=== PATIENT | male | born 1935 | race Caucasian/White ===

== ENCOUNTER → 2017-01-12 13:07 | Outpatient (CLI) | payer MEDICARE, BC | END | disposition home or self-care (01) | LOC: D.MRI 13:07 | DX: M54.5 Low back pain (principal) ==

== ENCOUNTER 2017-05-22 18:21 | Emergency (ER) | payer MEDICARE, BC | END 2017-05-22 21:35 | disposition home or self-care (01) | LOC: D.ER 18:21 | DX: T40.4X5A Adverse effect of other synthetic narcotics, initial encounter (principal); Y92.009 Unspecified place in unspecified non-institutional (private) residence as the place of occurrence of the external cause; I10 Essential (primary) hypertension ==

== ENCOUNTER 2018-04-21 20:41 | Emergency (ER) | payer MEDICARE, BC ==
[~2018-04-21] VITALS: Ht 177.8 cm; Wt 85.0 kg
[2018-04-21 21:07] VITALS: Ht 177.8 cm; Wt 85.0 kg
[2018-04-22 01:20] VITALS: BP 156/72
== END 2018-04-22 01:20 | disposition home or self-care (01) ==
LOC: D.ER 20:41
DX: S01.91XA Laceration without foreign body of unspecified part of head, initial encounter (principal); W10.9XXA Fall (on) (from) unspecified stairs and steps, initial encounter; Y93.89 Activity, other specified; Y92.019 Unspecified place in single-family (private) house as the place of occurrence of the external cause; S00.93XA Contusion of unspecified part of head, initial encounter

== ENCOUNTER 2018-08-19 10:17 | Observation (INO) | payer MEDICARE, BC ==
[~2018-08-19] VITALS: Ht 177.8 cm; Wt 89.4 kg
[2018-08-19] VITALS (8 sets, daily range): BP systolic 113–176; BP diastolic 35–79; BMI 28.3
--- NOTE | ~2018-08-19 | MORECARE ---
CASE MANAGEMENT DISCHARGE SUMMARY PATIENT: LAVINIA FRANCISCO UNIT: [id number] ADM DATE: 08/19/18 AGE: 83 : 33 SEX: M ROOM/BED: D.E14 AUTHOR: JEFF GARCIA PHYSICIAN: REFERRING PHYSICIAN: KEILA ARRINGTON MD DATE OF SERVICE: 08/19/18 Discharge Plan Patient Name: LAVINIA FRANCISCO [facility] [facility] 1935 Planned Disposition: Anticipated Discharge Date: Discharge Date: Expected LOS: Initial Reviewer: [email or web address] Initial Review Date: 08/19/2018 Generated: 08/19/18 2:18 pm DCPIA - Discharge Planning Initial Assessment Updated by [email or web address]: Marya Anaya on 08/19/18 1:18 pm * Is the patient Alert and Oriented? Yes * PCP * Pharmacy [facility] * Preadmission Environment Home with Family * ADLs Partial Dependent * Partial ADLs (Assistance needed) Ambulation * Equipment Cane * List name and contact numbers for known caregivers / representatives who currently or will assist patient after discharge: BLAINE FRANCISCO, , * Community resources currently utilized None * Can the patient safely return to the preadmission environment? Yes * Has this patient been hospitalized within the prior 30 days at any hospital? No Patient Name: LAVINIA FRANCISCO Page 35574 at 1319 All edits/amendments must be made on the electronic document DICTATION DATE: 08/19/18 1318 MANAGER GYN: NELSY 08/19/18 1318 RPT#: [id number] DC DATE: STATUS: ADM IN [facility] [address] [place] [address] END OF REPORT
--- NOTE | ~2018-08-19 | MORECARE ---
CASE MANAGEMENT DISCHARGE SUMMARY PATIENT: LAVINIA FRANCISCO UNIT: [id number] ADM DATE: 08/19/18 AGE: 83 : 33 SEX: M ROOM/BED: D.2117 AUTHOR: JEFF GARCIA PHYSICIAN: REFERRING PHYSICIAN: KEILA ARRINGTON MD DATE OF SERVICE: 08/23/18 Discharge Plan Patient Name: LAVINIA FRANCISCO Facility: [facility]:[place] : 1935 Planned Disposition: Home Anticipated Discharge Date: 08/20/18 Discharge Date: 08/20/2018 Expected LOS: 1 Initial Reviewer: [email or web address] Initial Review Date: 08/19/2018 Generated: 08/23/18 12:26 pm DCP- Discharge Planning Updated by [email or web address]: Marya Anaya on 08/19/18 12:[address] Patient Name: LAVINIA FRANCISCO Admission Status: ER Accout number: [id number] Admission Date: 08-19-2018 : 1935 Admission Diagnosis: Attending: KEILA ARRINGTON Current LOS: 1 Anticipated DC Date: Planned Disposition: Primary Insurance: MEDICARE A & B Discharge Planning Comments: CM SPOKE WITH PATIENT AND FAMILY ABOUT DC PLANNING/NEEDS. [facility] PLANS TO DC TO HOME WHEN DISCHARGED. [facility] HAS NO NEEDS. [facility] USES A CANE TO HELP WITH AMBULATION. CM WILL FOLLOW AND ASSIST NEEDED WITH DC PLANNING/NEEDS. Bundle Helper: Marya Anaya DCPIA - Discharge Planning Initial Assessment Updated by [id number]: Marya Anaya on 08/19/18 1:18 pm * Is the patient Alert and Oriented? Yes * PCP * Pharmacy [facility] * Preadmission Environment Home with Family * ADLs Partial Dependent * Partial ADLs (Assistance needed) Ambulation * Equipment Cane * List name and contact numbers for known caregivers / representatives who currently or will assist patient after discharge: BLAINE FRANCISCO, , * Community resources currently utilized None * Can the patient safely return to the preadmission environment? Yes * Has this patient been hospitalized within the prior 30 days at any hospital? No Last DP export: 08/19/18 12:26 Patient Name: LAVINIA FRANCISCO Page 90791 at 1126 All edits/amendments must be made on the electronic document DICTATION DATE: 08/23/181125 MANAGER NEWS: NELSY 08/23/181125 RPT#: [id number] DC DATE:08/20/18 STATUS: DIS IN [facility] [address] [place] [address] END OF REPORT
--- NOTE | ~2018-08-19 | HP ---
PATIENT: LAVINIA FRANCISCO MEDICAL RECORD: [id number] ACCOUNT: [id number] LOCATION:[address] : [birth year] ADMISSION DATE: 08/19/18 PCP: KEILA ARRINGTON MD HISTORY AND PHYSICAL EXAMINATION REASON FOR ADMISSION: Recurrent chest pain. HISTORY OF PRESENT ILLNESS: The patient is an 83-year-old male with history of essential hypertension, remote inferior lateral myocardial infarction in 07/24/2005 at which point he had a PTCA of the OM branch. He had an ostial RCA intervention with an Xience stent in 03/07/2009. He has seen me for a Medicare wellness exam approximately 3 weeks ago and on questioning he did admit to some rest nocturnal substernal chest pain that reminded him of the angina. Usually, 1-2 nitro would resolve it. He was referred to Dr. Esparza who had seen him a month before, but was not having symptoms then. Dr. Esparza's [employer] saw him a few weeks ago and scheduled him for cardiac catheterization in 2 weeks. The patient had a severe episode last night, which he was at most of the night with substernal chest pain radiating to his right chest. He said he had no diaphoresis, nausea or vomiting. He took 5 nitroglycerin without relief and came into the Emergency Room. Ultimately morphine sulfate relieved his pain, he is now pain free. Denies any recent exertional chest pain. PAST MEDICAL HISTORY: Inferior lateral HI in 2004 with PTCA of the OM branch at that time in 2008, PTCA of the RCA. History of bradycardia, sick sinus syndrome, allergic rhinitis, BPH, dyslipidemia, rosacea, remote concussion falling down stairs, osteoarthritis. History of lumbar canal stenosis. PAST SURGICAL HISTORY: Tonsillectomy, cataract extraction of both eyes, placement of his coronary stents times 2, OM branch and the RCA. FAMILY HISTORY: Father at 85, had hydrocephalus, CAD. Mother at 84, hypertension. VACCINE HISTORY: He has had influenza vaccine, Prevnar and Pneumovax. HOME MEDICATIONS: Losartan 50 mg p.o. daily, Clopidogrel 75 mg a day, Nitrostat 0.4 sublingual p.r.n. chest pain, aspirin 81 mg a day, Aleve 220 mg p.o. b.i.d. p.r.n. low back pain, finasteride 5 mg a day, famotidine 20 mg at bedtime, Dyazide 1 every morning, simvastatin 20 mg at bedtime, allopurinol 300 mg a day. REVIEW OF SYSTEMS: GENERAL: Denies fatigue or fever. HEENT: No recent new visual change, sinus congestion, or sore throat. Does have chronic trouble with hearing. RESPIRATORY: No shortness of breath or cough. CARDIAC: Nocturnal chest pain for 3 months, critically crescendoed last evening, requiring 5 nitroglycerin without relief. GASTROINTESTINAL: No nausea, vomiting, change in stools or blood per rectum. GENITOURINARY: Nocturia once or twice nightly. ENDOCRINE: Denies polyuria, polydipsia, heat or cold intolerance. NEUROLOGIC: No history of stroke, TIA, or vascular headaches. INTEGUMENT: No rash or itching. PSYCHIATRIC: Denies depressed mood. PHYSICAL EXAMINATION: HISTORY AND PHYSICAL [id number] LAVINIA FRANCISCO GENERAL: The patient is alert at this time, in no acute distress, eating lunch in the ED. VITAL SIGNS: Temperature is 97.9, blood pressure was 160/68, pulse ox 100%, respirations 17, pulse 59 and regular. GENERAL: Alert and oriented. HEENT: Eyes are clear. Malar facial rashes noted. NECK: Supple, without bruits or masses. CHEST: Clear. HEART: Bradycardic without murmur. ABDOMEN: Soft and nontender. PELVIC: Deferred. EXTREMITIES: No CC&E. NEUROLOGICAL: He is oriented to person, place, and time. Memory is excellent. Gait was not tested. PSYCHIATRIC: He has normal mood. Denies depressive symptoms. LABORATORY DATA: Shows a white count of 6500, H&H of 12.9 and 38.3 respectively. BUN and creatinine are 42 and 1.7. Liver functions normal. Troponin 0.025. ProBNP is 381. Chest x-ray shows no acute cardiopulmonary disease process appreciated. EKG shows no acute ST segment abnormalities. ASSESSMENT: 1. Unstable rest angina. 2. Known coronary artery disease in the obtuse marginal branch and right coronary artery. 3. History of remote inferior myocardial infarction in 2004, hypertension, hyperlipidemia, rosacea, gouty arthritis, obesity, remote smoking history, lumbar disc disease. PLAN: The patient will be admitted, cardiac floor, topical nitrates. We will hydrate concerning his azotemia. Dr. Esparza will see the patient and consider cardiac catheterization next available. TRANSINT:[id number] Voice Confirmation ID: [id number] DOCUMENT ID: [id number] KEILA ARRINGTON MD at 0732 CC: [id number] DICTATION DATE: 08/19/18 1319 MARSHMALLOW MACHINE WORKER: 08/19/18 1518 ADM IN [place] [id number] [place] [id number]
--- NOTE | ~2018-08-19 | HEMODYNAMI ---
PATIENT:LAVINIA FRANCISCO MEDICAL RECORD: [id number] : 31 LOCATION:[facility] D.2117 ADMISSION DATE: 08/19/18 Generatedon:08/20/201813:31 Patient name: LAVINIA FRANCISCO Patient #: [id number] SSN: : 1935 Date of study: 08/20/2018 Page: Of Hemodynamic Procedure Report Patient Data Patient Demographics Procedure consent was obtained First Name: LAVINIA Gender: Male Last Name: MARYAM : 1935 Middle Initial: TERESA Age: 83 year(s) Patient #: [id number] Race: Unknown Additional ID: [id number] Contact details Address: [address] [place] [address] State: [place] City: [facility] Zip code: [address] Admission Admission Data Admission Date: 08/19/2018 Admission Time: 12:46 Room #: D.2117 Height (in.): 69.69 BSA: 2.06 (m2) Height (cm.): 177 BMI: 28.41 (kg/m2) Weight (lbs.): 196.21 Weight (kg.): 89 Lab Results Lab Result Date: 08/20/2018 Lab Result Time: 0:00 Biochemistry Name Units Result Min Max BUN mg/dl 42 --(----)-* 7 18 Creatinine mg/dl 1.7 --(----)-* 0.6 1.3 Procedure Procedure Types Cath Procedure Diagnostic Procedure C C w/Coronaries Procedure Description Procedure Date Procedure Date: 08/20/2018 Procedure Start Time: 12:38 Procedure Staff Name Function Shant Ngo MD Performing Physician Juan Ness RT Monitor Jaxson Feng RN Nurse Stevie Edgar RT Scrub Procedure Medications Medication Administration Route Dosage Oxygen etCO2 Nasal cannula 2 l/min Heparin Flush Bag added to field 2 bags (1000units/500ml NS) 0.9% NaCl I.V. 100 ml/hr Hemodynamics Rest BSA: 2.06 (m2) O2 Consumption: Estimated: 280.16 (ml/min) O2 Consumption indexed : Estimated:136 (ml/min/m) Pre Cath Intra NCS Post Cath Medications Time Medication Route Dose Verified Delivered Reason Notes Effe ctiveness by by 13:27:27 Oxygen etCO2 2 Shant Puri Per Nasal l/min Huber Feng RN physician cannula 13:27:35 Heparin Flush added 2 Shant Jaxson used for Bag to bags Huber Feng RN procedure (1000units/500ml field NS) 13:27:43 0.9% NaCl I.V. 100 Shant Jaxson Per ml/hr Huber Feng RN physician Procedure Log Time Note 12:39:59 Patient Height : 69.69 inches 12:40:03 Patient Weight : 196.21 lbs 12:42:59 Lab Result : Creatinine 1.7 mg/dl 12:42:59 Lab Result : BUN 42 mg/dl 13:00:21 Juan Ness RT(R) sent for patient. Start room use. 13:09:22 Time tracking: Regular hours (M-F 7:00 - 5:00) 13:09:26 Plan of Care:Hemodynamics will remain stable., Cardiac rhythm will remain stable., Comfort level will be maintained., Respiratory function will remain adequate., Patient/ family verbilizes understanding of procedure., Procedure tolerated without complication., Recovers from procedure without complications.. 13:21:31 Patient received from Med II to CCL 3 Alert and oriented. Tansferred to table in Supine position. 13:21:32 Warm blankets applied, and john hugger turned on for patient comfort. 13:21:33 Correct patient and procedure confirmed by team. 13:21:34 Signed procedure consent form obtained from patient. 13:21:35 ECG and BP/O2 sat monitors applied to patient. 13:27:27 Oxygen 2 l/min etCO2 Nasal cannula was administered by Jaxson Feng RN; Per physician; 13:27:35 Heparin Flush Bag (1000units/500ml NS) 2 bags added to field was administered by Jaxson Feng RN; used for procedure; 13:27:43 0.9% NaCl 100 ml/hr I.V. was administered by Jaxson Feng RN; Per physician; Signature Audit [place] Stage Time Signature Unsigned Intra-Procedure 08/20/2018 Stevie Edgar 1:31:43 PM RT(R) Signatures Monitor : Juan Ness RT Signature : Date : Time : [place] [id number] [place] [address]
--- NOTE | ~2018-08-19 | MORECARE ---
CASE MANAGEMENT DISCHARGE SUMMARY PATIENT: LAVINIA FRANCISCO UNIT: [id number] ADM DATE: 08/19/18 AGE: 83 : 33 SEX: M ROOM/BED: D.E14 AUTHOR: JEFF GARCIA PHYSICIAN: REFERRING PHYSICIAN: KEILA ARRINGTON MD DATE OF SERVICE: 08/19/18 Discharge Plan Patient Name: LAVINIA FRANCISCO Facility: [facility]:[place] : 1935 Planned Disposition: Anticipated Discharge Date: Discharge Date: Expected LOS: Initial Reviewer: [email or web address] Initial Review Date: 08/19/2018 Generated: 08/19/18 2:26 pm DCP- Discharge Planning Updated by [email or web address]: Marya Anaya on 08/19/18 12:[address] Patient Name: LAVINIA FRANCISCO Admission Status: ER Accout number: [id number] Admission Date: 08-19-2018 : 1935 Admission Diagnosis: Attending: KEILA ARRINGTON Current LOS: 1 Anticipated DC Date: Planned Disposition: Primary Insurance: MEDICARE A & B Discharge Planning Comments: CM SPOKE WITH PATIENT AND FAMILY ABOUT DC PLANNING/NEEDS. [facility] PLANS TO DC TO HOME WHEN DISCHARGED. [facility] HAS NO NEEDS. [facility] USES A CANE TO HELP WITH AMBULATION. CM WILL FOLLOW AND ASSIST NEEDED WITH DC PLANNING/NEEDS. Fiction And Nonfiction Author: Marya Anaya DCPIA - Discharge Planning Initial Assessment Updated by [email or web address]: Marya Anaya on 08/19/18 1:18 pm * Is the patient Alert and Oriented? Yes * PCP * [facility] * Preadmission Environment Home with Family * ADLs Partial Dependent * Partial ADLs (Assistance needed) Ambulation * Equipment Cane * List name and contact numbers for known caregivers / representatives who currently or will assist patient after discharge: BLAINE FRANCISCO, , * Community resources currently utilized None * Can the patient safely return to the preadmission environment? Yes * Has this patient been hospitalized within the prior 30 days at any hospital? No Last DP export: 08/19/18 12:18 Patient Name: LAVINIA FRANCISCO Page [id number] at 1326 All edits/amendments must be made on the electronic document DICTATION DATE: 08/19/18 1326 DRY HOUSE OPERATOR: NELSY 08/19/18 1326 RPT#: [id number] SC DATE: STATUS: ADM IN [facility] [address] [place] [address] END OF REPORT
--- NOTE | ~2018-08-19 | HEMODYNAMI ---
PATIENT:LAVINIA FRANCISCO MEDICAL RECORD: [id number] : 31 LOCATION:[facility] D.2117 ADMISSION DATE: 08/19/18 Generatedon:08/20/201814:20 Patient name: LAVINIA FRANCISCO Patient #: [id number] SSN: : [id number] Date of study: 08/20/2018 Page: Of Hemodynamic Procedure Report Patient Data Patient Demographics Procedure consent was obtained First Name: LAVINIA Gender: Male Last Name: MARYAM : 1935 [facility] Initial: TERESA Age: 83 year(s) Patient #: [id number] Race: Unknown Additional ID: [id number] Contact details Address: [address] [place] [address] State: [place] City: [facility] Zip code: [address] Past Medical History Allergies: No known allergies Admission Admission Data Admission Date: 08/19/2018 Admission Time: 12:46 Room #: D.2117 Height (in.): 69.69 BSA: 2.06 (m2) Height (cm.): 177 BMI: 28.41 (kg/m2) Weight (lbs.): 196.21 Weight (kg.): 89 Lab Results Lab Result Date: 08/20/2018 Lab Result Time: 0:00 Biochemistry Name Units Result Min Max BUN mg/dl 35 --(----)-* 7 18 Creatinine mg/dl 1.5 --(----)-* 0.6 1.3 CBC Name Units Result Min Max Hemoglobin g/dl 11.3 *-(----)-- 13.5 17.5 Procedure Procedure Types Cath Procedure Diagnostic Procedure [facility] w/Coronaries PCI Procedure Coronary Stent Coronary Stent Initial Procedure Description Procedure Date Procedure Date: 08/20/2018 Procedure Start Time: 13:57 Procedure End Time: 14:15 Procedure Staff Name Function Shant Ngo MD Performing Physician Juan Ness RT Monitor Jaxson Feng RN Nurse Stevie Edgar RT Scrub Romana London RN Certified Nursing Assistant Procedure Data Cath Procedure Fluoroscopy Diagnostic fluoroscopy Total fluoroscopy Time: 5 time: 5 min min Diagnostic fluoroscopy Total fluoroscopy dose: 263 dose: 263 mGy mGy Contrast Material Contrast Material Type Amount (ml) Isovue 300 102 Entry Location Entry Primary Successful Side Size Upsize Upsize Entry Closure Succes sful Closure Location (Fr) 1 (Fr) 2 (Fr) Remarks Device Remarks Femoral Right 5 Fr 7 Fr Exoseal artery Short Diagnostic catheters Device Type Used For End Catheter Placement MULTIPACK 3DRC 5Fr Right Coronary catheter Angiography MULTIPACK JL 4.0 5Fr Left Coronary catheter Angiography MULTIPACK Pigtail 5 Fr LV Angiography catheter Procedure Complications No complications Procedure Medications Medication Administration Route Dosage Oxygen etCO2 Nasal cannula 2 l/min Heparin Flush Bag added to field 2 bags (1000units/500ml NS) 0.9% NaCl I.V. 100 ml/hr Fentanyl I.V. 50 mcg Versed I.V. 1 mg Fentanyl I.V. 50 mcg Versed I.V. 1 mg Heparin Bolus I.V. 4000 units Hemodynamics Rest BSA: 2.06 (m2) HGB: 11.3 (g/dl) O2 Consumption: Estimated: 237.98 (ml/min) O2 Co nsumption indexed: Estimated:115.52 (ml/min/m) Heart Rate: 75 (bpm) Snapshots Pre Cath Intra NCS Post Cath Vital Signs Time Heart Resp SPO2 etCO2 NIBP (mmHg) Rhythm Pain Sedation Rate (ipm) (%) (mmHg) Status Level (bpm) 13:38:12 76 16 97 0 169/87(127) NSR 0 (11) 10(A) , No pain 13:42:40 71 16 96 10.4 153/83(133) NSR 0 (11) 10(A) , No pain 13:47:00 71 16 96 0 158/84(137) NSR 0 (11) 10(A) , No pain 13:51:20 68 17 95 9.6 159/81(133) NSR 0 (11) 10(A) , No pain 13:55:36 71 6 96 0 151/83(100) NSR 0 (11) 10(A) , No pain 14:00:03 73 10 95 9.7 144/76(118) NSR 0 (11) 10(A) , No pain 14:05:02 77 11 97 0 Measuring NSR 0 (11) 10(A) , No pain 14:05:24 74 11 96 0 156/85(130) NSR 0 (11) 10(A) , No pain 14:10:23 76 20 95 0 Measuring NSR 0 (11) 10(A) , No pain 14:10:54 81 14 95 0 171/87(136) NSR 0 (11) 10(A) , No pain 14:15:22 74 13 95 4.4 167/89(126) NSR 0 (11) 10(A) , No pain Medications Time Medication Route Dose Verified Delivered Reason Notes Effectiveness by by 13:41:46 Oxygen etCO2 2 Shant Jaxson Per physician Nasal l/min Huber Feng RN cannula 13:42:06 Heparin Flush added 2 Shant Jaxson used for Bag to bags Huber Feng RN procedure (1000units/500ml field NS) 13:42:21 0.9% NaCl I.V. 100 Shant Puri Per physician ml/hr Huber Feng RN 13:47:40 Fentanyl I.V. 50 Shant Jaxson for sedation mcg Huber Feng RN 13:48:22 Versed I.V. 1 mg Shant Puri for sedation Huebr Feng RN 13:51:43 Fentanyl I.V. 50 Shant Whaleyy for sedation mcg Huber Feng RN 13:51:48 Versed I.V. 1 mg Shant Whaleyy for sedation Huber Fegn RN 14:02:29 Heparin Bolus I.V. 4000 Shant Romana for verif ied units Huber Callahan anticoagulation with Dr. LAURA Ngo Procedure Log Time Note 12:45:22 Juan Ness RT(R) sent for patient. Start room use. 13:36:08 Patient Height : 69.69 inches 13:36:08 Patient Weight : 196.21 lbs 13:36:38 Time tracking: Regular hours (M-F 7:00 - 5:00) 13:36:41 Plan of Care:Hemodynamics will remain stable., Cardiac rhythm will remain stable., Comfort level will be maintained., Respiratory function will remain adequate., Patient/ family verbilizes understanding of procedure., Procedure tolerated without complication., Recovers from procedure without complications.. 13:36:49 Patient received from Med II to CCL 3 Alert and oriented. Tansferred to table in Supine position. 13:36:50 Warm blankets applied, and john hugger turned on for patient comfort. 13:36:51 Correct patient and procedure confirmed by team. 13:36:52 Signed procedure consent form obtained from patient. 13:36:53 ECG and BP/O2 sat monitors applied to patient. 13:36:53 Vital chart was started 13:38:18 Baseline sample Acquired. 13:38:22 Rhythm: sinus rhythm 13:38:24 Full Disclosure recording started 13:40:19 H&P Date Dictated: 08/19/2018 Within 30 days and on chart.. 13:40:21 Pre-procedure instructions explained to patient. 13:40:22 Pre-op teaching completed and patient verbalized understanding. 13:40:26 Family in patients room. 13:40:29 Patient NPO since Midnight. 13:41:25 Patient allergic to No known allergies 13:41:28 Is the patient allergic to Iodine/contrast media? No. 13:41:34 Is patient on blood thinner?Yes 13:41:37 ACC The patient was administered the following blood thiners within the last 24 hours: ACCPlavix 13:41:46 Oxygen 2 l/min etCO2 Nasal cannula was administered by Jaxson Feng RN; Per physician; 13:42:06 Heparin Flush Bag (1000units/500ml NS) 2 bags added to field was administered by Jaxson Feng RN; used for procedure; 13:42:21 0.9% NaCl 100 ml/hr I.V. was administered by Jaxson Feng RN; Per physician; 13:42:31 Patient diabetic? No. 13:42:32 ----Pre-sedation anethsthesia assessment.---- 13:42:34 Previous problem with sedation/anesthesia? No ? 13:42:36 Snore? Yes 13:42:37 Sleep apnea? No 13:42:40 Deviated septum? No 13:42:41 Opens mouth fully? Yes 13:42:42 Sticks out tongue? Yes 13:42:44 Airway obstruction? No ? 13:42:50 Dentures? Yes IN 13:42:53 Pre procedure: right dorsailis pedis pulse 1+ Palpable, but thready & weak; easily obliterated 13:43:11 Modified Tj's test Ulnar > 7 seconds. 13:43:14 Patient pain scale 0/10 ?. 13:43:21 IV patent on arrival in left antecubital with 0.9% NaCl at 10ml/hr. 13:45:16 Lab Result : BUN 35 mg/dl 13:45:16 Lab Result : Creatinine 1.5 mg/dl 13:45:16 Lab Result : Hemoglobin 11.3 g/dl 13:45:19 Lab results completed and on chart. 13:45:41 Right groin area was prepped with chlora-prep and draped in sterile fashion 13:45:42 Alarms reviewed by R. N. 13:45:42 Sharps counted by scrub and verified by R.N. 13:45:43 Physician arrived 13:45:44 --------ALL STOP TIME OUT------ 13:45:44 Final Timeout: patient, procedure, and site verified with staff and physician. All members of the team are in agreement. 13:45:48 Right groin site verified by team. 13:45:51 Physical assessment completed. ASA score P 2 - A patient with mild systemic disease as per Shant Ngo MD. 13:45:54 Sedation plan: IV Moderate Sedation Medication:Versed, Fentanyl 13:47:40 Fentanyl 50 mcg I.V. was administered by Jaxson Feng RN; for sedation; 13:47:54 Use device set Femoral Dx 13:47:56 ACIST Syringe (95480) opened to sterile field. 13:47:56 Bag Decanter (2002S) opened to sterile field. 13:47:57 Medline Cath Pack ([id number]) opened to sterile field. 13:47:57 DIAGNOSTIC WIRE .035 260cm J wire (467561) opened to sterile field. 13:47:59 ACIST Hand Control (91054) opened to sterile field. 13:47:59 ACIST Manifold (93272) opened to sterile field. 13:48:00 DIAGNOSTIC Multipack 5Fr catheter set (JR2653) opened to sterile field. 13:48:01 Tegaderm 4 x 4 (1626W) opened to sterile field. 13:48:02 SHEATH 5FR [place] (DWM315) opened to sterile field. 13:48:22 Versed 1 mg I.V. was administered by Jaxson Feng RN; for sedation; 13:51:43 Fentanyl 50 mcg I.V. was administered by Jaxson Feng RN; for sedation; 13:51:48 Versed 1 mg I.V. was administered by Jaxson Feng RN; for sedation; 13:57:05 Procedure started. 13:57:09 Local anesthetic to right femoral artery with Lidocaine 2% by Shant Ngo MD.INITIAL ACCESS ONLY 13:57:52 A 5 Fr sheath was inserted into the Right Femoral artery 13:57:55 Zero performed for pressure channel P1 13:58:23 A MULTIPACK 3DRC 5Fr catheter was advanced over the wire and used for Right Coronary Angiography. 13:58:39 RCA angiography performed. 13:59:12 Zero performed for pressure channel P1 13:59:29 Catheter exchanged over wire. 13:59:38 A MULTIPACK JL 4.0 5Fr catheter was advanced over the wire and used for Left Coronary Angiography. 14:00:03 LCA angiography performed. 14:00:43 Catheter exchanged over wire. 14:02:29 Heparin Bolus 4000 units I.V. was administered by Romana Callahan RN; for anticoagulation; verified with Dr. Ngo 14:02:40 A MULTIPACK Pigtail 5 Fr catheter was advanced over the wire and used for LV Angiography. 14:02:44 LV angiography performed. 14:02:45 LV gram done using CASTILLO 14:02:50 EF : 50 % 14:02:51 Catheter exchanged over wire. 14:02:57 Sheath upsized to a 7 Fr Short. 14:03:11 7 Fr EBU 3.5 SH guide catheter was inserted over the wire 14:03:14 CPTES wire advanced. 14:04:05 GUIDE 7FR EBU 3.5 SH catheter ([id number]) opened to sterile field. 14:04:06 SHEATH 7FR [place] (NFQ659) opened to sterile field. 14:04:06 CHOICE PT Extra Support 182cm wire ([id number]) opened to sterile field. 14:04:07 INFLATOR Merit BasixCompak (XL5095) opened to sterile field. 14:07:55 Inflate balloon Inflation number: 1 A EUPHORA 2.5 x 20 Balloon ([id number]) was prepped and advanced across the Mid LAD, then inflated to 17 MARCIE for 0:10 (min:sec). 14:08:19 Balloon removed over the wire. 14:09:51 Place stent Inflation Number: 2 A GAGE RX 3.0 x 22 stent ([id number]) was prepped and advanced across the Mid LAD. The stent was deployed at 13 MARCIE for 0:04 (min:sec). 14::54 Stent catheter was removed intact over wire. 14::54 Wire removed. 14::57 Guide catheter removed. 14:10:04 Sheath removed intact; hemostasis achieved with Exoseal to the Right Femoral artery. 14:10:06 Procedure ended.(Physican Out) 14:10:10 Contrast amount:Isovue 300 102ml. 14:10:39 Fluoroscopy time 05.00 minutes. 14::57 Fluoroscopy dose: 263 mGy 14::57 Flurop Dose total: 263 14:11:02 Sharps counted by scrub and verified by R.N. 14:11:04 Insertion/operative site no bleeding no hematoma. 14:11:07 Post-op/insertion site Right Femoral artery dressed using a 4 x 4 and Tegaderm. 14:12:42 Post right femoral artery:stable 14:12:43 Post Procedure Pulses reassessed and unchanged 14:12:46 Post procedure: right dorsailis pedis pulse 1+ Palpable, but thready & weak; easily obliterated. 14:12:49 Post procedure rhythm: sinus rhythm 14:12:51 Post procedure instruction explained to patient.Patient verbalizes understanding. 14:12:53 Procedure and supply charges have been captured, reviewed, submitted and are correct. 14:13:04 Procedure type changed to Cath procedure, Diagnostic procedure, LHC, LHC w/Coronaries, PCI procedure, Coronary Stent, Coronary Stent Initial 14:13:11 Procedure Complication : No complications 14:14:58 Vital chart was stopped 14:14:58 See physician's report for complete and final results. 14:15:03 Report given to PCU. 14:15:07 Patient transfered to PCU with Bed. 14:15:09 Procedure ended. 14:15:09 Full Disclosure recording stopped 14:15:13 End room use (Document Last) 14:19:12 EXOSEAL 7Fr (EX700) opened to sterile field. Intervention Summary Intervention Notes Time ActionType Lesion and Equipment Used Action# Pressure Duration Attributes 14:07:55 Inflate Mid LAD EUPHORA 2.5 x 1 17 00:10 balloon 20 Balloon ([id number]) 14:09:51 Place stent Mid LAD GAGE RX 3.0 x 2 13 00:04 22 stent ([id number]) Device Usage Item Name Manufacture Quantity Catalog Number Hospital Part Current M inimal Lot# / Charge Number Stock Stock Serial# Code ACIST Syringe Acist 1 30034 773327 395524 509907 2 0 (50877) Medical Systems Inc Bag Decanter Microtek 1 575272 09933 767975 5 () Medical Inc. Medline Cath Medline 1 [id number] 870326 40748 411042 5 Pack ([id number]) DIAGNOSTIC [facility] 1 753063 745978 289041 888735 3 0 WIRE .035 260cm J wire (335275) ACIST Hand Acist 1 95260 746189 391773 668118 5 Control Medical (61406) Systems Inc ACIST Manifold Acist 1 66206 127249 544732 461994 5 (03765) Medical Systems Inc DIAGNOSTIC Cardinal 1 RC5674 683927 13952 051256 3 0 Multipack 5Fr Health catheter set (AY1302) Tegaderm 4 x 4 3M 1 1626W 469089 450626 294444 5 (1626W) SHEATH 5FR Terumo 1 CRY393 039832 689980 175492 5 Ridgeway (HAV764) MULTIPACK 3DRC Cardinal 1 266567 5 5Fr catheter Health MULTIPACK JL Cardinal 1 576549 5 4.0 5Fr Health catheter MULTIPACK Cardinal 1 406629 5 Pigtail 5 Fr Health catheter GUIDE 7FR EBU Medtronic 1 [id number] 168561 064108 776459 0 3.5 SH catheter ([id number]) SHEATH 7FR Terumo 1 KWV082 533376 339036 499826 5 Ridgeway (SLD318) CHOICE PT [place] 1 [id number] 571752 251593 510227 5 Extra Support Scientific 182cm wire ([id number]) INFLATOR Merit Merit 1 JD0793 117094 517663 993950 1 5 Tapgage (RY2713) EUPHORA 2.5 x Medtronic 1 [id number] 523783 436222 892227 5 [id number] 20 Balloon ([id number]) GAGE RX 3.0 x Medtronic 1 [id number] 812019 5186960 815181 5 [id number] 22 stent ([id number]) EXOSEAL 7Fr Cardinal 1 EX700 662650 647672 895231 5 (EX700) Health Signature Audit [place] Stage Time Signature Unsigned Intra-Procedure 08/20/2018 Juan Ness RT(R) 2:20:29 PM Signatures Monitor : Juan Ness RT Signature : Date : Time : [address] [place] [address]
--- NOTE | ~2018-08-19 | OP ---
PATIENT NAME: LAVINIA FRANCISCO MEDICAL RECORD: [id number] :31 LOCATION:D.M2 D.2117 ADMISSION DATE:08/19/18 SURGEON: JANA SARMIENTO MD DATE OF OPERATION: 08/20/2018 PROCEDURES: 1. PTCA and stent, LAD. 2. Left heart catheterization. 3. Selective coronary angiography. 4. Left ventriculogram. INDICATIONS: Unstable angina and coronary artery disease. PROCEDURE IN DETAIL: After informed consent was obtained with detailed description of risks and benefits as well as alternative therapies, the patient elected to proceed with angiogram and angioplasty. The right femoral area was prepped and draped in normal sterile fashion. Right femoral artery was cannulated via modified Seldinger technique with placement of 7-Hungarian sheath. All catheters were exchanged through this sheath. FINDINGS: The left ventriculogram performed in standard 30-degree CASTILLO view reveals good cardiac wall motion throughout all segments. Overall ejection fraction is estimated at 50%. SELECTIVE CORONARY ANGIOGRAPHY: 1. Left main is with no significant angiographic disease. 2. Left anterior descending has 90% stenosis proximally. 3. Left circumflex has moderate irregularities, but no flow-limiting stenosis. 4. Right coronary has 90% to 95% stenosis in the mid vessel. PTCA AND STENT OF THE LAD: The stent used was 3.0 x 22-mm Bon. Result was 0% residual stenosis. OVERALL IMPRESSION: Successful PTCA and stent of the LAD, going from 90% initial stenosis to 0% residual. PLAN: PTCA and stent of the RCA in the near future. TRANSINT:[id number] Voice Confirmation ID: [id number] DOCUMENT ID: [id number] JANA SARMIENTO MD CC: [id number] DICTATION DATE: 08/20/186 DICER OPERATOR: 08/20/18 1623 ADM IN [facility] [address] [place] [address]
[2018-08-19 10:59] LABS: BASOPHILS 0.6 % (0-2); EOSINOPHILS 1.7 % (0-7); HEMATOCRIT 38.3 % (42.0-54.0); HEMOGLOBIN 12.9 g/dL (13.5-17.5); IMMATURE GRANULOCYTES 0.2 % (0-5); LYMPHOCYTES 11.2 % (15-50); MCH 32.8 pg (26.0-34.0); MCHC 33.7 g/dL (31.0-37.0); MCV 97.5 fL (80.0-100.0); MEAN PLATELET VOLUME 9.6 fL (7.4-10.4); MONOCYTES 11.5 % (2-11); NEUTROPHILS 74.8 % (40-80); PLATELET COUNT 177 10x3/uL (130-400); RBC 3.93 10x6/uL (4.20-6.10); RDW 12.4 % (11.5-14.5); WBC 6.5 10x3/uL (4.8-10.8)
[2018-08-19 11:04] LABS: ALBUMIN 3.8 g/dL (3.4-5.0); ANION GAP 13.1 mmol/L (8-16); BILIRUBIN - TOTAL 0.46 mg/dL (0.2-1.3); CALCIUM 8.8 mg/dL (8.5-10.1); CARBON DIOXIDE 27.2 mmol/L (21.0-32.0); CREATININE - SERUM 1.7 mg/dL (0.6-1.3); POTASSIUM - SERUM 4.3 mmol/L (3.5-5.1); PROTEIN - SERUM 7.7 g/dL (6.4-8.2)
[2018-08-19 11:10] LABS: TROPONIN-I 0.025 ng/mL (0.000-0.060)
[2018-08-20 04:00] VITALS: BP 111/75
[2018-08-20 05:38] LABS: BASOPHILS 0.3 % (0-2); EOSINOPHILS 4.2 % (0-7); HEMATOCRIT 34.4 % (42.0-54.0); HEMOGLOBIN 11.3 g/dL (13.5-17.5); IMMATURE GRANULOCYTES 0.2 % (0-5); LYMPHOCYTES 20.1 % (15-50); MCH 32.1 pg (26.0-34.0); MCHC 32.8 g/dL (31.0-37.0); MCV 97.7 fL (80.0-100.0); MEAN PLATELET VOLUME 9.8 fL (7.4-10.4); MONOCYTES 11.5 % (2-11); NEUTROPHILS 63.7 % (40-80); PLATELET COUNT 164 10x3/uL (130-400); RBC 3.52 10x6/uL (4.20-6.10); RDW 12.7 % (11.5-14.5)
[2018-08-20 06:17] LABS: ANION GAP 15.3 mmol/L (8-16); CALCIUM 8.4 mg/dL (8.5-10.1); CARBON DIOXIDE 23.9 mmol/L (21.0-32.0); CREATININE - SERUM 1.5 mg/dL (0.6-1.3); POTASSIUM - SERUM 4.2 mmol/L (3.5-5.1)
[2018-08-20 11:03] VITALS: BP 110/61
[2018-08-20 12:14] VITALS: Ht 177.8 cm; Wt 89.4 kg
[2018-08-20] MEDS ORDERED: PEPCID AC20 MG PO (16:06)
[2018-08-20] MEDS ORDERED: PLAVIX75 MG (16:06)
[2018-08-20] MEDS ORDERED: ZOCOR20 MG PO (16:06)
[2018-08-20] MEDS ORDERED: PROSCAR5 MG PO (16:06)
[2018-08-20] MEDS ORDERED: COZAAR50 MG PO (16:07)
[2018-08-20] MEDS ORDERED: BAYER CHEWABLE81 MG PO (16:09)
[2018-08-23] MEDS ORDERED: MAXZIDE 75/501 TAB PO (08:18)
[2018-08-23] MEDS ORDERED: FISH OIL 1,0001 CA1 PO (08:19)
[2018-08-23] MEDS ORDERED: XALATAN 0.0052.5 ML EACH EYE (08:22)
== END 2018-08-20 18:51 | disposition home or self-care (01) ==
LOC: D.ER 10:17 → D.EDHOLD 12:46 → OBSVTIME 12:46 → D.M2 15:46
PROVIDERS: Family Medicine
DX: I25.110 Atherosclerotic heart disease of native coronary artery with unstable angina pectoris (principal); N40.0 Benign prostatic hyperplasia without lower urinary tract symptoms; E78.5 Hyperlipidemia, unspecified; I10 Essential (primary) hypertension; E66.9 Obesity, unspecified; L71.9 Rosacea, unspecified; Z87.891 Personal history of nicotine dependence
CPT/HCPCS: 93458; C9600

== ENCOUNTER 2018-08-23 10:00 | Outpatient (CLI) | payer MEDICARE, BC ==
[~2018-08-23] VITALS: Ht 177.8 cm; Wt 87.3 kg
--- NOTE | ~2018-08-23 | HEMODYNAMI ---
PATIENT:LAVINIA FRANCISCO MEDICAL RECORD: [id number] : 31 LOCATION:D.CAT ADMISSION DATE: 08/23/18 Generatedon:08/23/201811:52 Patient name: LAVINIA FRANCISCO Patient #: [id number] SSN: : 1935 Date of study: 08/23/2018 Page: Of Hemodynamic Procedure Report Patient Data Patient Demographics Procedure consent was obtained First Name: LAVINIA Gender: Male Last Name: MARYAM : 1935 [facility] Initial: TERESA Age: 83 year(s) Patient #: [id number] Race: Unknown Additional ID: [id number] Contact details Address: [address] [place] [address] State: [place] City: [facility] Zip code: [address] Past Medical History Allergies: No known allergies Admission Admission Data Admission Date: 08/23/2018 Admission Time: 10:00 Lab Results Lab Result Date: 08/23/2018 Lab Result Time: 0:00 Biochemistry Name Units Result Min Max BUN mg/dl 28 --(----)-* 7 18 Creatinine mg/dl 1.5 --(----)-* 0.6 1.3 CBC Name Units Result Min Max Hemoglobin g/dl 12.5 *-(----)-- 13.5 17.5 Procedure Procedure Types Cath Procedure Diagnostic Procedure Sedation Charges Moderate Sedation up to 15 minutes Peripheral Cath Diagnostic Procedure Senior Java Engineer Peripheral Procedures Yjxqi-Jvlwvfj-Bbk-Off Procedure Description Procedure Date Procedure Date: 08/23/2018 Procedure Start Time: 11:27 Procedure End Time: 11:46 Procedure Staff Name Function Yina Nieto RT Monitor Janie Perez RT Scrub Marcin Duke RN Nurse Shant Ngo MD Performing Physician Procedure Data Cath Procedure Fluoroscopy Diagnostic fluoroscopy Total fluoroscopy Time: 5.7 time: 5.7 min min Diagnostic fluoroscopy Total fluoroscopy dose: 870 dose: 870 mGy mGy Contrast Material Contrast Material Type Amount (ml) Isovue 300 112 Entry Location Entry Primary Successful Side Size Upsize Upsize Entry Closure Succes sful Closure Location (Fr) 1 (Fr) 2 (Fr) Remarks Device Remarks Femoral Left 7 Fr 7 Fr Exoseal artery Short Long Estimated blood loss: 5 ml Diagnostic catheters Device Type Used For End Catheter Placement DIAGNOSTIC UF 5Fr Multi-vessel catheter ([id number]) Angiography Procedure Complications No complications Procedure Medications Medication Administration Route Dosage 0.9% NaCl I.V. 100 ml/hr Oxygen etCO2 Nasal cannula 2 l/min Lidocaine 2% added to field 20 Plavix P.O. 75 mg Versed I.V. 2 mg Fentanyl I.V. 100 mcg Heparin Bolus I.V. 4000 units Hemodynamics Rest HGB: 12.5 (g/dl) Heart Rate: 67 (bpm) Snapshots Pre Cath Intra NCS Post Cath Vital Signs Time Heart Resp SPO2 etCO2 NIBP (mmHg) Rhythm Pain Sedation Rate (ipm) (%) (mmHg) Status Level (bpm) 11:15:34 62 15 100 28.7 181/84(147) NSR 0 (11) 10(A) , No pain 11:20:02 63 10 99 15.9 171/74(123) NSR 0 (11) 10(A) , No pain 11:24:25 63 10 98 27.9 165/79(123) NSR 0 (11) 10(A) , No pain 11:28:45 68 19 97 7.5 185/87(142) NSR 0 (11) 10(A) , No pain 11:33:11 66 18 94 24.9 172/81(130) NSR 0 (11) 9(A) , No pain 11:37:33 68 18 96 13.6 177/88(119) NSR 0 (11) 9(A) , No pain 11:41:55 77 19 97 9.8 156/77(131) NSR 0 (11) 9(A) , No pain 11:46:09 75 11 97 0 177/93(143) NSR 0 (11) 9(A) , No pain Medications Time Medication Route Dose Verified Delivered Reason Notes Eff ectiveness by by 11:20:17 0.9% NaCl I.V. 100 Marcin Marcin Per physician ml/hr Leilani Duke RN RN 11:20:28 Oxygen etCO2 2 Marcin Marcin Per physician Nasal l/min Leilani Duke cannula RN RN 11:20:39 Lidocaine added 20ml Marcin Marcin for local 2% to vial Leilani Duke anesthetic field RN RN 11:20:57 Plavix P.O. 75 mg Marcin Marcin for Leilani Duke antiplatelet RN RN therapy 11:27:23 Versed I.V. 2 mg Marcin Marcin for sedation Leilani Duke RN RN 11:27:31 Fentanyl I.V. 100 Marcin Marcin for sedation mcg Leilani Duke RN RN 11:35:48 Heparin I.V. 4000 Marcin Marcin for Bolus units Leilani Duke anticoagulation RN sales clerk food Log Time Note 11:00:59 Diagnostic Cath Status : Elective 11:01:19 Marcin Duke RN sent for patient. Start room use. 11:01:20 Time tracking: Regular hours (M-F 7:00 - 5:00) 11:01:23 Plan of Care:Hemodynamics will remain stable., Cardiac rhythm will remain stable., Comfort level will be maintained., Respiratory function will remain adequate., Patient/ family verbilizes understanding of procedure., Procedure tolerated without complication., Recovers from procedure without complications.. 11:04:54 Patient received from Pre/Post Procedure Room to CCL 2 Alert and oriented. Tansferred to table in Supine position. 11:04:57 Warm blankets applied, and john hugger turned on for patient comfort. 11:04:57 Correct patient and procedure confirmed by team. 11:05:05 Signed procedure consent form obtained from patient. 11:13:12 ECG and BP/O2 sat monitors applied to patient. 11:13:12 Vital chart was started 11:13:14 Baseline sample Acquired. 11:13:17 Rhythm: sinus rhythm 11:13:19 Full Disclosure recording started 11:13:22 H&P Date Dictated: 08/23/2018 Within 30 days and on chart., H&P Addendum completed by physician on day of procedure. (MUST COMPLETE FOR ALL OUTPATIENTS). 11:13:23 Pre-procedure instructions explained to patient. 11:13:23 Pre-op teaching completed and patient verbalized understanding. 11:13:25 Family in patients room. 11:13:27 Patient NPO since Midnight. 11:13:28 Is the patient allergic to Iodine/contrast media? No. 11:13:29 Was the patient premedicated? No 11:13:30 Is patient on blood thinner?Yes 11:13:32 ACC The patient was administered the following blood thiners within the last 24 hours: ACCPlavix 11:13:35 Patient diabetic? No. 11:13:41 Previous problem with sedation/anesthesia? No ? 11:13:44 Snore? Yes 11:13:45 Sleep apnea? No 11:13:46 Deviated septum? No 11:13:47 Opens mouth fully? Yes 11:13:47 Sticks out tongue? Yes 11:13:49 Airway obstruction? No ? 11:13:55 Dentures? Yes in tight 11:13:59 Pre procedure: right dorsailis pedis pulse 1+ Palpable, but thready & weak; easily obliterated 11:14:03 Pre procedure: left dorsailis pedis pulse 1+ Palpable, but thready & weak; easily obliterated 11:14:06 Patient pain scale 0/10 ?. 11:14:15 IV patent on arrival in left forearm with 0.9% NaCl at [facility]. 11:14:18 Lab results completed and on chart. 11:14:22 Bilateral groins area was prepped with chlora-prep and draped in sterile fashion 11:14:22 Alarms reviewed by R. N. 11:14:23 Sharps counted by scrub and verified by R.N. 11:15:15 Use device set CATH PACK 11:15:16 ACIST Syringe (75052) opened to sterile field. 11:15:17 ACIST Hand Control (62144) opened to sterile field. 11:15:18 ACIST Manifold (02113) opened to sterile field. 11:15:18 Medline Cath Pack ([id number]) opened to sterile field. 11:15:19 Bag Decanter (2002) opened to sterile field. 11:15:19 DIAGNOSTIC WIRE .035 260cm J wire (513189) opened to sterile field. 11:15:36 CHOICE PT Extra Support 182cm wire ([id number]) opened to sterile field. 11:15:37 INFLATOR Merit BasixCompak (BJ6184) opened to sterile field. 11:15:38 SHEATH 7FR [place] (ZSL288) opened to sterile field. 11:18:19 Physician paged 11:20:01 Zero performed for pressure channel P1 11::17 0.9% NaCl 100 ml/hr I.V. was administered by Marcin Duke RN; Per physician; :: Oxygen 2 l/min etCO2 Nasal cannula was administered by Marcin Duke RN; Per physician; 11::39 Lidocaine 2% 20ml vial added to field was administered by Marcin Duke RN; for local anesthetic; 11::57 Plavix 75 mg P.O. was administered by Marcin Duke RN; for antiplatelet therapy; ::50 Lab Result : Creatinine 1.5 mg/dl 11:: Lab Result : BUN 28 mg/dl 11::50 Lab Result : Hemoglobin 12.5 g/dl 11::43 Physician arrived ::44 --------ALL STOP TIME OUT------ :44 Final Timeout: patient, procedure, and site verified with staff and physician. All members of the team are in agreement. 11::45 Bilateral groins site verified by team. 11::48 Physical assessment completed. ASA score P 2 - A patient with mild systemic disease as per Shant Ngo MD. 11::51 Sedation plan: IV Moderate Sedation Medication:Versed, Fentanyl 11::01 Procedure started. 11::07 Local anesthetic to left femerol artery with Lidocaine 2% by Shant Ngo MD.INITIAL ACCESS ONLY 11:27:23 Versed 2 mg I.V. was administered by Marcin Duke RN; for sedation; 11::24 A 7 Fr Short sheath was inserted into the Left Femoral artery 11::31 Fentanyl 100 mcg I.V. was administered by Marcin Duke RN; for sedation; 11:28:21 Zero performed for pressure channel P1 11::47 A DIAGNOSTIC UF 5Fr catheter ([id number]) was advanced over the wire and used for Multi-vessel Angiography. 11:30:49 Abdominal angiogram w/ runoff was performed. 11::54 Catheter removed. 11:31:04 7 Fr ar 2 sh guide catheter was inserted over the wire 11:33:09 Guide Catheter removed. unable to get back-up support 11:33:50 SHEATH 7FR ARROW 45cm ([id number]) opened to sterile field. 11:34:17 Sheath upsized to a 7 Fr Long. 11:35:26 GUIDE 7FR AR 2.0 SH catheter ([id number]) opened to sterile field. 11:35:39 7 Fr ar 2 sh guide catheter was inserted over the wire 11:35:48 Heparin Bolus 4000 units I.V. was administered by Marcin Duke RN; for anticoagulation; 11:36:16 Guide Catheter removed. unable to cannulate vessel. 11:37:00 GUIDE 7FR HS I SH catheter ([id number]) opened to sterile field. 11:37:10 7 Fr hs 1 sh guide catheter was inserted over the wire 11:37:55 choice pt wire advanced. 11:42:39 The EUPHORA 1.5 x 20 Balloon ([id number]) was advanced and then removed because of failure to cross lesion 11:42:42 Balloon removed over the wire. 11:42:44 Wire removed. 11:42:48 Guide catheter removed. 11:42:56 EXOSEAL 7Fr (EX700) opened to sterile field. 11:43:20 Sheath removed intact; hemostasis achieved with Exoseal to the Left Femoral artery. 11:43:22 Procedure ended.(Physican Out) 11:43:49 Fluoroscopy time 05.70 minutes. 11:43:53 Flurop Dose total: 870 11:43:53 Fluoroscopy dose: 870 mGy 11:43:57 Contrast amount:Isovue 300 112ml. 11:43:58 Sharps counted by scrub and verified by R.N. 11:43:59 Insertion/operative site no bleeding no hematoma. 11:44:02 Post-op/insertion site Left Femoral artery dressed using a 4 x 4 and Tegaderm. 11:44:06 Post left femerol artery:stable 11:44:07 Post Procedure Pulses reassessed and unchanged 11:44:09 Post procedure rhythm: unchanged. 11:44:12 Estimated blood loss: 5 ml 11:44:14 Post procedure instruction explained to patient.Patient verbalizes understanding. 11:44:14 Patient needs reinforcement of post procedure teaching. 11:46:06 Procedure type changed to Cath procedure, Diagnostic procedure, Sedation Charges, Moderate Sedation up to 15 minutes, Peripheral Cath Diagnostic Procedure, Senior Java Engineer Peripheral Procedures, Akytd-Xkxxzir-Xvj-Off 11:46:07 Procedure and supply charges have been captured, reviewed, submitted and are correct. 11:46:12 Procedure Complication : No complications 11:46:14 Vital chart was stopped 11:46:14 See physician's report for complete and final results. 11:46:24 Report given to Pre/Post Procedure Room. 11:46:26 Patient transfered to Pre/Post Procedure Room with Stretcher. 11:46:29 Procedure ended. 11:46:29 Full Disclosure recording stopped 11:46:34 End room use (Document Last) Intervention Summary Intervention Notes Time ActionType Lesion and Equipment Action# Pressure Duration Attributes Used 11:42:39 Discard EUPHORA Balloon 1.5 x 20 Balloon ([id number]) Device Usage Item Name Manufacture Quantity Catalog Number Hospital Part Current Minim al Lot# / Charge Number Stock Stock Serial# Code ACIST Acist 1 28764 514680 827301 809789 20 Syringe Medical (02637) Systems Inc ACIST Hand Acist 1 63671 340258 039593 902351 5 Control Medical (06990) Systems Inc ACIST Acist 1 18962 088206 876391 956250 5 Manifold Medical (81896) Systems Inc Medline Medline 1 [id number] 827459 99419 092120 5 Cath Pack ([id number]) Bag Microtek 1 2001S 419374 81689 393973 5 Decanter Medical Inc. () DIAGNOSTIC [place] 1 486589 059515 109500 366662 30 WIRE .035 260cm J wire (448656) CHOICE PT [place] 1 [id number] 078844 893481 808139 5 Extra Scientific Support 182cm wire ([id number]) INFLATOR Merit 1 NN5358 788338 193401 321148 15 [facility] Medical BasixCompak (WU0724) SHEATH 7FR Terumo 1 NYN261 854455 032052 679892 5 [place] (GOG874) DIAGNOSTIC Cardinal 1 [id number] 350190 514110 992375 10 UF 5Fr Health catheter ([id number]) SHEATH 7FR Teleflex 1 CL-25331 147640 376803 000075 1 ARROW 45cm (YA93504) GUIDE 7FR Medtronic 1 [id number] 170111 067810 725020 0 AR 2.0 SH catheter ([id number]) GUIDE 7FR Medtronic 1 [id number] 517449 378979 373286 0 HS I SH catheter ([id number]) EUPHORA 1.5 Medtronic 1 [id number] 556176 239636 420597 5 [id number] x 20 Balloon ([id number]) EXOSEAL 7Fr Cardinal 1 EX700 428270 120170 700864 5 (EX700) Health Signature Audit [place] Stage Time Signature Unsigned Intra-Procedure 08/23/2018 Yina Nieto 11:52:04 AM RT(R) Signatures Monitor : Yina Nieto RT Signature : Date : Time : [place] [address] [place] [address]
[2018-08-23 08:31] VITALS: BP 169/68; Ht 177.8 cm; Wt 87.3 kg
[2018-08-23 08:41] LABS: BASOPHILS 0.5 % (0-2); EOSINOPHILS 4.1 % (0-7); HEMATOCRIT 36.8 % (42.0-54.0); HEMOGLOBIN 12.5 g/dL (13.5-17.5); IMMATURE GRANULOCYTES 0.2 % (0-5); LYMPHOCYTES 18.4 % (15-50); MCH 32.8 pg (26.0-34.0); MCV 96.6 fL (80.0-100.0); MEAN PLATELET VOLUME 9.4 fL (7.4-10.4); MONOCYTES 13.4 % (2-11); NEUTROPHILS 63.4 % (40-80); PLATELET COUNT 168 10x3/uL (130-400); RBC 3.81 10x6/uL (4.20-6.10); RDW 12.3 % (11.5-14.5); WBC 5.6 10x3/uL (4.8-10.8)
[2018-08-23 08:53] LABS: ANION GAP 13.8 mmol/L (8-16); CALCIUM 9.1 mg/dL (8.5-10.1); CARBON DIOXIDE 25.2 mmol/L (21.0-32.0); CREATININE - SERUM 1.5 mg/dL (0.6-1.3)
[~2018-08-23 10:00] MED LIST: BAYER CHEWABLE81 MG PO; COZAAR50 MG PO; FISH OIL 1,0001 CA1 PO; MAXZIDE 75/501 TAB PO; PEPCID AC20 MG PO; PLAVIX75 MG; PROSCAR5 MG PO; XALATAN 0.0052.5 ML EACH EYE; ZOCOR20 MG PO
--- NOTE | 2018-08-23 12:11 | NUR ---
RECIEVED TO ROOM VIA STRETCHER FROM GLOBAL SUPPLY CHAIN DIRECTOR WITH FEMSTOP TO L/GROIN PRESSURE AT 209 HEMATOMA IS MARKED. PATIENT CONNECTED TO MONITOR FOR OBSERVATION WITH HR 66 BP 170/75 CHEST PAIN IS DENIED
--- NOTE | 2018-08-23 12:18 | NUR ---
FEMSTOP REMAINS IN PLACE WITH NO ADDITIONAL GROWTH TO HEMATOMA. PRESSURE REMAINS AT 209 VSS AND CHEST PAIN DENIED
--- NOTE | 2018-08-23 12:43 | NUR ---
RELEASED PRESSURE ON FEMSTOP TO 170 NO BLEEDING OR HEMATOMA NOTED. VSS AND CHEST PAIN DENIED
--- NOTE | 2018-08-23 13:00 | NUR ---
PATIENT COMPLAINS OF PAIN TO L/HIP WITH FEMSTOP IN PLACE. ORDERES OBTAINED FROM DR SARMIENTO FOR NORCO 5/325 PO TO BE GIVEN ORAL.
--- NOTE | 2018-08-23 13:27 | NUR ---
PATIENT VERBALZED RELIEF OF PAIN TO L/HIP. PRESSURE TO FEMSTOP RELEASED TO 145 NO BLEEDING NOTED
--- NOTE | 2018-08-23 13:48 | NUR ---
PRESSURE TO FEMSTOP RELEASED TO 100 NO BLEEDING NOTED
--- NOTE | 2018-08-23 14:32 | NUR ---
FEMSTOP REMAINS IN PLACE WITH NO PRESSURE TO SITE. NO BLEEDING OR HEMATOMA NOTED. PATIENT RESTING QUIETLY NO DISTRESS NOTED
--- NOTE | 2018-08-23 15:26 | NUR ---
FEMSTOP REMOVED WITH DRESSING APPLIED NO BLEEDING OR HEMATOMA NOTED. CHEST PAIN DENIED REPOSITIONED TO SITTING WITH HOB UP 30
--- NOTE | 2018-08-23 15:37 | NUR ---
VERBAL AND WRITTEN DISCHARGE GONE OVER WITH PATIENT AND FAMILY. 6 FR EXOSEAL L/GROIN REMAINS CDI NO GROWTH TO MARKED HEMATOMA SITE IS SOFT TO TOUCH.
--- NOTE | 2018-08-23 15:46 | NUR ---
PIV REMOVED WITH DRESSING APPLIED. DRESSING TO L/GROIN REMAINS CDI. PATIENT UP TO GET DRESSED FOR TRANSPORT HOME NO DISTRESS
--- NOTE | 2018-08-23 16:11 | NUR ---
PATIENT LEFT VIA WC TO [facility] FOR TRANSPORT HOME NO DISTESS NOTED. CHEST PAIN DENIED AND L/GROIN CDI
--- NOTE | 2018-08-24 13:24 | HP ---
PATIENT: LAVINIA JON MEDICAL RECORD: [id number] ACCOUNT: [id number] LOCATION:GIAN : 31 ADMISSION DATE: 08/23/18 PCP: KEILA ARRINGTON MD HISTORY AND PHYSICAL EXAMINATION DIAGNOSES: 1. Angina. 2. Coronary artery disease. 3. Recent PTCA stent LAD with concomitant disease RCA. 4. Peripheral vascular disease. 5. Claudication. 6. Hypertension. 7. Hyperlipidemia. HISTORY OF PRESENT ILLNESS: Mr. Jon presents with anginal symptomatology, found to have critical disease of the RCA and LAD, underwent successful PTCA stent of the LAD. The RCA is very heavily calcified and very tortuous. We will try for PTCA stent of the RCA as well as he is having leg pain compatible with claudication. He has a history of peripheral vascular disease. PHYSICAL EXAMINATION: GENERAL APPEARANCE: Well-nourished, well-developed, appears stated age. Level of distress, comfortable. PSYCHIATRIC: Mental status, alert, normal affect. Orientation, oriented to time, place and person. EYES: Lids and conjunctiva, noninjected. No discharge, no pallor. ENT: Lips, teeth, gums, normal dentition. Oropharynx, no cyanosis, no pallor. NECK: Carotid arteries, bilateral normal upstroke, no bruits, no thrills. JUGULAR VEINS: No jugular venous pressure or distention. CERVICAL LYMPH NODES: Nontender, nonenlarged. THYROID: Not enlarged. Nontender. No nodules. LUNGS: Respiratory effort, unlabored. CHEST: Normal curvature. No thoracic deformity. No chest wall tenderness. Percussion, resonant. Auscultation, clear. No wheezes, no rales, no rhonchi. CARDIOVASCULAR: Precordial exam, nondisplaced. No heaves or pericardial thrills. Rate and rhythm, regular. Heart sounds, normal S1, normal S2. No S3, no gallop, no rub. Systolic murmur, not heard. Diastolic murmur, not heard. EXTREMITIES: No cyanosis, no edema. Peripheral pulses, full and equal in all extremities, except as noted. No bruits appreciated. ABDOMEN: Soft, nondistended. Normal aorta. No bruit. Nontender. No masses. Liver, nontender, no hepatomegaly. Spleen, nontender, no splenomegaly. MUSCULOSKELETAL: No joint tenderness. No joint swelling. No erythema. NEUROLOGICAL: Normal gait, normal strength, normal tone. SKIN: Warm and dry. OVERALL IMPRESSION: Anginal symptomatology with significant disease of the RCA. We will try for transcatheter revascularization of the RCA if possible. If not, we would optimize medical therapy for the angina related to the RCA. TRANSINT:[id number] Voice Confirmation ID: [id number] DOCUMENT ID: [id number] HISTORY AND PHYSICAL [id number] LAVINIA JON, JANA RICHARDS at 1324 CC: [id number] DICTATION DATE: 08/23/18 1332 INFORMATION OFFICER: 08/23/18 1411 PRE [facility] [address] [place] [address]
--- NOTE | 2018-08-24 13:24 | OP ---
PATIENT NAME: LAVINIA FRANCISCO MEDICAL RECORD: [id number] :31 LOCATION:D.CAT ADMISSION DATE: SURGEON: JANA SARMIENTO MD DATE OF OPERATION: 08/23/2018 DATE OF SERVICE: 08/23/2018 PROCEDURES: 1. Aortofemoral runoff. 2. Abdominal aortography. 3. Selective coronary angiography. 4. Attempted, but failed PTCA stent RCA due to inability to cross the lesion with any balloon. PROCEDURE IN DETAIL: After informed consent was obtained and after detailed description of risks, benefits as well as alternative therapies, the patient elected to proceed with angiogram and angioplasty. The left femoral area was prepped and draped in normal sterile fashion. The left femoral artery was cannulated via modified Seldinger technique with placement of 7-Upper Sorbian sheath. All catheters exchanged through this sheath. FINDINGS: The abdominal aortography was performed. The catheter was pulled down for aortofemoral runoff and abdominal aortography reveals no significant abdominal aortic disease, no dissection or aneurysm formation. RIGHT LEG: A. Iliac: The common internal and external iliacs have mild irregularities, heavy calcification, but no flow-limiting stenosis. B. Femoral system: The common superficial and deep femoral have mild irregularities, heavy calcification, but no flow-limiting stenosis. C. Popliteal and infrapopliteal vessels are as well heavily calcified, diffusely diseased, but there is patent 3-vessel runoff to the foot. LEFT LEG: A. Iliac: The common internal and external iliacs have mild irregularities, heavy calcification, but no flow-limiting stenosis. B. Femoral system: The common superficial and deep femoral have mild irregularities, heavy calcification, but no flow-limiting stenosis. C. Popliteal and infrapopliteal vessels are as well heavily calcified, diffusely diseased, but there is patent 3-vessel runoff to the foot. Attempted but failed PTCA stent of the RCA. We were able to traverse multiple lesions with a Choice PT extra support wire; however, due to the heavy calcification, no balloon would even vaguely let alone into the lesions. OVERALL IMPRESSION: Significant disease of the right coronary artery, heavy calcification, tortuosity and multiple areas of over 90% stenosis. This will be treated medically at this point. TRANSINT:[id number] Voice Confirmation ID: [id number] DOCUMENT ID: [id number] OPERATIVE REPORT [id number] MARYAM,JANA THOMPSON MD at 1324 CC: [id number] DICTATION DATE: 08/23/18 1149 CASKET COVERER: 08/23/18 1222 PRE [facility] [address] [place] [address]
== END 2018-08-23 23:00 ==
LOC: D.CATH 10:00
PROVIDERS: Internal Medicine Interventional Cardiology
DX: I70.213 Atherosclerosis of native arteries of extremities with intermittent claudication, bilateral legs (principal); I25.10 Atherosclerotic heart disease of native coronary artery without angina pectoris; E78.5 Hyperlipidemia, unspecified

== ENCOUNTER → 2019-09-05 09:33 | Outpatient (CLI) | payer MEDICARE, BC ==
[2018-08-23 08:31] VITALS: BMI 27.6
--- NOTE | ~2019-09-05 | ST ---
PATIENT:LAVINIA FRANCISCO MEDICAL RECORD: [id number] SEX: M LOCATION:[facility] ORDER #: ADMISSION DATE: 09/05/19 AGE OF PATIENT: 84 REFERRING PHYSICIAN: INTERPRETING PHYSICIAN: JANA SARMIENTO MD DATE OF SERVICE: 09/05/2019 PROCEDURE: Nuclear stress test. INDICATION: Angina, coronary artery disease, hypertension, shortness of breath, hyperlipidemia. TECHNIQUE: He was exercised on standard Lexiscan protocol with 33 mCi of sestamibi injected at peak stress, 11 mCi used previously for rest images. FINDINGS: Gated SPECT reveals preserved ejection fraction at 71% with good wall motioning and thickening and brightening throughout all segments. SPECT imaging Cardiolite was used as myocardial perfusion agent. There is reversibility inferiorly, apically, and septally. This includes the basal, mid, apical, inferior segments, inferoseptal, mid septal as well as the apical segments themselves. OVERALL IMPRESSION: This is an abnormal nuclear stress test with intermediate risk with reversibility inferiorly, apically, and septally suggestive of hemodynamically significant coronary artery disease. TRANSINT:[id number] Voice Confirmation ID: [id number] DOCUMENT ID: [id number] JANA SARMIENTO MD CC: KEILA ARRINGTON [id number] DICTATION DATE: 09/05/19 1700 [facility] SPR[facility] INSTALLER: 09/06/19 0738 [facility] CLI 09/05/19 [facility] [address] [place] [address]
== END | disposition home or self-care (01) ==
LOC: D.HCCARDIO 09:33
PROVIDERS: ATTEND Internal Medicine Interventional Cardiology
DX: I25.10 Atherosclerotic heart disease of native coronary artery without angina pectoris (principal)

== ENCOUNTER 2019-09-16 07:14 | Outpatient (CLI) | payer MEDICARE, BC ==
[~2019-09-16] VITALS: Ht 177.8 cm; Wt 75.9 kg
--- NOTE | ~2019-09-16 | HEMODYNAMI ---
PATIENT:LAVINIA FRANCISCO MEDICAL RECORD: [id number] : 31 LOCATION:[facility] ADMISSION DATE: 09/16/19 Generatedon:09/16/20199:43 Patient name: LAVINIA FRANCISCO Patient #: [id number] : 1935 Date of study: 09/16/2019 Page: Of Hemodynamic Procedure Report Patient Data Patient Demographics Procedure consent was obtained First Name: LAVINIA Gender: Male Last Name: MARYAM : 1935 Middle Initial: TERESA Age: 84 year(s) Patient #: [id number] Race: SSN: [id number] Additional ID: [id number] Contact details Address: [address] [place] [address] State: [place] City: [facility] Zip code: [address] Past Medical History Allergies: No known allergies Admission Admission Data Admission Date: 09/16/2019 Admission Time: 7:14 Arrival Date: 09/16/2019 Arrival Time: 8:00 Admit Source: Other Insurance Payor: Medicare, Private health insurance [facility] #: [id number] Height (in.): 70.08 BSA: 1.94 (m2) Height (cm.): 178 BMI: 23.99 (kg/m2) Weight (lbs.): 167.55 Weight (kg.): 76 Procedure Procedure Types Cath Procedure Diagnostic Procedure LHC [facility] w/Coronaries FFR/IVUS FFR Initial FFR Additional Sedation Charges Moderate Sedation up to 30 minutes PCI Procedure Coronary Stent Coronary Stent Initial Hemochron ACT Test Procedure Description Procedure Date Procedure Date: 09/16/2019 Procedure Start Time: 9:08 Procedure End Time: 9:39 Procedure Staff Name Function Shant Ngo MD Performing Physician Yina Nieto RT Monitor Janie Perez RT Scrub Romana Callahan RN Nurse Indication Angina Procedure Data Cath Procedure Fluoroscopy Diagnostic fluoroscopy Total fluoroscopy Time: 8.4 time: 8.4 min min Diagnostic fluoroscopy Total fluoroscopy dose: dose: 1022 mGy 1022 mGy Contrast Material Contrast Material Type Amount (ml) Isovue 300 108 Entry Location Entry Primary Successful Side Size Upsize Upsize Entry Closure Succes sful Closure Location (Fr) 1 (Fr) 2 (Fr) Remarks Device Remarks Femoral Right 6 Fr 7 Fr Exoseal artery Short Long Estimated blood loss: 5 ml Diagnostic catheters Device Type Used For End Catheter Placement MULTIPACK Pigtail 5 Fr LV Angiography catheter MULTIPACK JL 4.0 5Fr Left Coronary catheter Angiography MULTIPACK 3DRC 5Fr Right Coronary catheter Angiography Procedure Complications No complications Procedure Medications Medication Administration Route Dosage 0.9% NaCl I.V. 100 ml/hr Oxygen etCO2 Nasal cannula 2 l/min Lidocaine 2% added to field 20 Heparin Flush Bag added to field 2 bags (1000units/500ml NS) Versed I.V. 2 mg Fentanyl I.V. 50 mcg Heparin Bolus I.V. 4000 units Hemodynamics Rest BSA: 1.94 (m2) O2 Consumption: Estimated: 211.3 (ml/min) O2 Consumption indexed: Estimated:108.92 (ml/min/m) Heart Rate: 58 (bpm) Pressure Samples Time Site Value (mmHg) Purpose Heart Use Rate(bpm) 9:08 LV 156/83,7 Snapshot 68 Snapshots Pre Cath Intra NCS Post Cath Vital Signs Time Heart Resp SPO2 etCO2 NIBP (mmHg) Rhythm Pain Sedation Rate (ipm) (%) (mmHg) Status Level (bpm) 8:58:59 75 19 98 15 135/64(119) NSR 0 (11) 10(A) , No pain 9:03:19 59 18 97 10.5 139/63(111) SB 0 (11) 10(A) , No pain 9:07:39 55 11 97 24 117/64(98) SB 0 (11) 10(A) , No pain 9:12:38 60 13 95 0 Measuring NSR 0 (11) 10(A) , No pain 9:12:40 60 13 95 27 129/64(111) NSR 0 (11) 9(A) , No pain 9:16:56 62 13 97 21 139/63(118) NSR 0 (11) 9(A) , No pain 9:21:17 58 13 96 26.2 126/63(111) SB 0 (11) 9(A) , No pain 9:25:33 59 14 96 28.5 146/63(100) SB 0 (11) 9(A) , No pain 9:29:52 62 14 97 27.7 163/74(96) NSR 0 (11) 10(A) , No pain 9:34:19 65 14 98 27.7 155/75(124) NSR 0 (11) 10(A) , No pain 9:38:43 62 22 99 17.2 149/71(117) NSR 0 (11) 10(A) , No pain Medications Time Medication Route Dose Verified Delivered Reason Notes Effectiveness by by 8:55:51 0.9% NaCl I.V. 100 Shant Romana used for ml/hr Huber Callahan full roll inspector 8:55:58 Oxygen etCO2 2 Shant Romana used for Nasal l/min Huber Callahan procedure cannula RN 8:56:03 Lidocaine 2% added 20ml Shant Shant for local to vial Huber Ngo MD anesthetic field 8:56:08 Heparin Flush added 2 Shant Shant used for Bag to bags Huber Ngo MD procedure (1000units/500ml field NS) 9:08:28 Versed I.V. 2 mg Shant Romana for sedation Huber Callahan RN 9:08:34 Fentanyl I.V. 50 Shant Romana for sedation mcg Huber Callahan RN 9:19:57 Heparin Bolus I.V. 4000 Shant Romana for verifi ed units Huber Callahan anticoagulation with Dr. LAURA Ngo Procedure Log Time Note 8:20:14 Diagnostic Cath Status : Elective 8:20:35 Indication : Angina 8:20:57 Informed consent obtained and on chart 8:22:46 Arrival Date: 09/16/2019 8:00:00 AM 8:23:11 Insurance Payor : Private health insurance, Medicare 8:24:42 Admit Source: Other 8:24:46 Patient Height : 70.08 inches 8:24:50 Patient Weight : 167.55 lbs 8:27:42 Janie LINDO(R) sent for patient. Start room use. 8:27:43 Time tracking: Regular hours (M-F 7:00 - 5:00) 8:27:47 Plan of Care:Hemodynamics will remain stable., Cardiac rhythm will remain stable., Comfort level will be maintained., Respiratory function will remain adequate., Patient/ family verbilizes understanding of procedure., Procedure tolerated without complication., Recovers from procedure without complications.. 8:55:51 0.9% NaCl 100 ml/hr I.V. was administered by Romana Callahan RN; used for procedure; Verbal order read back and verified. 8:55:58 Oxygen 2 l/min etCO2 Nasal cannula was administered by Romana Callahan RN; used for procedure; Verbal order read back and verified. 8:56:03 Lidocaine 2% 20ml vial added to field was administered by Shant Ngo MD; for local anesthetic; Verbal order read back and verified. 8:56:08 Heparin Flush Bag (1000units/500ml NS) 2 bags added to field was administered by Shant Ngo MD; used for procedure; Verbal order read back and verified. 8:57:45 Patient received from Pre/Post Procedure Room to [facility] 2 Alert and oriented. Tansferred to table in Supine position. 8:57:46 Warm blankets applied, and john hugger turned on for patient comfort. 8:57:46 Correct patient and procedure confirmed by team. 8:57:47 ECG and BP/O2 sat monitors applied to patient. 8:57:51 Vital chart was started 9:04:05 Baseline sample Acquired. 9:04:09 Rhythm: sinus rhythm 9:04:10 Full Disclosure recording started 9:04:17 H&P Date Dictated: 09/16/2019 Within 30 days and on chart., H&P Addendum completed by physician on day of procedure. (MUST COMPLETE FOR ALL OUTPATIENTS). 9:04:18 Pre-procedure instructions explained to patient. 9:04:19 Pre-op teaching completed and patient verbalized understanding. 9:04:24 Family unavailable. 9:04:25 Patient NPO since Midnight. 9:04:28 Is the patient allergic to Iodine/contrast media? No. 9:04:39 Was the patient premedicated? Yes 9:04:59 ACC The patient was administered the following blood thiners within the last 24 hours: ACCPlavix 9:05:02 Patient diabetic? No. 9:05:04 Previous problem with sedation/anesthesia? No ? 9:05:06 Snore? No 9:05:07 Sleep apnea? No 9:05:08 Deviated septum? No 9:05:08 Opens mouth fully? Yes 9:05:09 Sticks out tongue? Yes 9:05:11 Airway obstruction? No ? 9:05:18 Dentures? Yes in tight 9:05:21 Pre procedure: right dorsailis pedis pulse 1+ Palpable, but thready & weak; easily obliterated 9:05:23 Pre procedure: left dorsailis pedis pulse 1+ Palpable, but thready & weak; easily obliterated 9:05:25 Patient pain scale 0/10 ?. 9:05:33 IV patent on arrival in left forearm with 0.9% NaCl at O. 9:05:36 Lab results completed and on chart. 9:05:41 Stress Test: yes; abnormal ? 9:05:47 Risk of Mortality: 2.2 9:05:50 Risk of blood transfusion: 5.7 9:05:54 Risk of DANIA: 8.6 9:05:59 Right groin area was prepped with chlora-prep and draped in sterile fashion 9:06:00 Alarms reviewed by R. N. 9:06:01 Sharps counted by scrub and verified by R.N. 9:06:01 Physician arrived 9:06:02 --------ALL STOP TIME OUT------ 9:06:02 Final Timeout: patient, procedure, and site verified with staff and physician. All members of the team are in agreement. 9:06:04 Right groin site verified by team. 9:06:07 Fire Safety Assessment: A--An alcohol-based skin anteseptic being used preoperatively., C--Open oxygen or nitrous oxide is being used., D--An ESU, laser, or fiber-optic light is being used. 9:06:10 Physical assessment completed. ASA score P 2 - A patient with mild systemic disease as per Shant Ngo MD. 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 9:07:25 Maximum allowable contrast dose (3.7 X eGFR X 0.75)113 ml. 9:07:29 Sedation plan: IV Moderate Sedation Medication:Versed, Fentanyl 9:07:36 Use device set Femoral Dx 9:07:37 ACIST Syringe (04093) opened to sterile field. 9:07:38 Bag Decanter (2001S) opened to sterile field. 9:07:38 Medline Cath Pack ([id number]) opened to sterile field. 9:07:39 ACIST Hand Control (67158) opened to sterile field. 9:07:40 ACIST Manifold (42192) opened to sterile field. 9:07:40 DIAGNOSTIC Multipack 5Fr catheter set (KV2921) opened to sterile field. 9:07:41 Tegaderm 4 x 4 (1626W) opened to sterile field. 9:07:44 EMERALD Guide Wire (559-152) opened to sterile field. 9:07:53 SHEATH 6FR [place] (GGQ408) opened to sterile field. 9:07:57 Procedure started. 9:08:06 Local anesthetic to right femoral artery with Lidocaine 2% by Shant Ngo MD.INITIAL ACCESS ONLY 9:08:15 A 6 Fr Short sheath was inserted into the Right Femoral artery 9:08:26 Zero performed for pressure channel P1 9:08:28 Versed 2 mg I.V. was administered by Romana Callahan RN; for sedation; Verbal order read back and verified. 9:08:31 Zero performed for pressure channel P1 9:08:34 Fentanyl 50 mcg I.V. was administered by Romana Callahan RN; for sedation; Verbal order read back and verified. 9:08:40 Zero performed for pressure channel P1 9:08:46 Zero performed for pressure channel P1 9:09:18 A MULTIPACK Pigtail 5 Fr catheter was advanced over the wire and used for LV Angiography. 9:09:27 LV hemodynamics recorded. 9:09:29 LV gram done using CASTILLO 9:09:31 Injector settings: Ml/sec: 5, Volume: 15, 9:09:36 EF : 55 % 9:09:38 Catheter removed. 9:09:41 A MULTIPACK JL 4.0 5Fr catheter was advanced over the wire and used for Left Coronary Angiography. 9:10:29 LCA angiography performed. 9:10:32 Injector settings: Ml/sec: 3, Volume: 6, 9:11:06 Catheter removed. 9:11:14 A MULTIPACK 3DRC 5Fr catheter was advanced over the wire and used for Right Coronary Angiography. 9:11:19 RCA angiography performed. 9:11:21 Injector settings: Ml/sec: 3, Volume: 6, 9:11:22 Catheter removed. 9:11:35 INFLATOR Merit BasixCompak (HH1954) opened to sterile field. 9:11:40 Zero performed for pressure channel P1 9:12:23 Sullivan Verrata Plus pressure wire (64040P) opened to sterile field. 9:12:54 Zero performed for pressure channel P1 9:13:33 SHEATH 7FR [place] (MHN991) opened to sterile field. 9:13:58 GUIDE 7FR AR 2.0 SH catheter ([id number]) opened to sterile field. 9:13:59 GUIDE 6FR XB 4.0 catheter ([id number]) opened to sterile field. 9:14:24 CHOICE PT Extra Support 182cm wire ([id number]) opened to sterile field. 9:14:41 Proceeding to intervention. 9:14:50 7 Fr ar 2 sh guide catheter was inserted over the wire 9:16:46 Guide Catheter removed. unable to cannulate vessel. 9:16:55 GUIDE 7FR HS II SH catheter ([id number]) opened to sterile field. 9:17:06 SHEATH 7FR ARROW 45cm ([id number]) opened to sterile field. 9:18:46 Sheath upsized to a 7 Fr Long. 9:18:55 7 Fr hs 2 sh guide catheter was inserted over the wire 9:19:02 choicept wire advanced. 9:19:57 Heparin Bolus 4000 units I.V. was administered by Romana Callahan RN; for anticoagulation; verified with Dr. Ngo Verbal order read back and verified. 9:20:42 Wire removed. unable to cross lesion. 9:21:35 FIELDER XT 190cm guidewire ([id number]) opened to sterile field. 9:21:41 fielder] wire advanced. 9:22:43 Wire removed. unable to cross lesion. 9:23:07 aborting pci to RCA. 9:23:17 Guide catheter removed. 9:23:28 6 Fr xb 4 guide catheter was inserted over the wire 9:23:36 FFR/IFR wire advanced. 9:23:37 Baseline FFR 1. 9:24:35 ACC Pre-intervention SHANE Flow is 3. 9:25:14 Wire advanced across lesion. 9:27:13 mCirc lesion measured at 0.95 with IFR 9:27:50 Wire redirected to lad. 9:28:09 Baseline FFR 1. 9:28:17 mLAD lesion measured at 0.87 with IFR 9:29:29 Place stent Inflation Number: 1 A GAGE RX 3.5 x 15 stent ([id number]) was prepped and advanced across the Mid LAD 70. The stent was deployed at 19 MARCIE for 0:10 (min:sec) . 9:30:42 Stent catheter was removed intact over wire. 9:30:42 Wire removed. 9:30:42 Guide catheter removed. 9:30:53 EXOSEAL 7Fr (EX700) opened to sterile field. 9:31:05 Sheath removed intact; hemostasis achieved with Exoseal to the Right Femoral artery. 9:31:10 Procedure ended.(Physican Out) 9:32:36 ACT drawn and resulted at 104 seconds. (normal therapeutic range 180-240 seconds). 9:34:49 Fluoroscopy time 08.40 minutes. 9:34:53 Flurop Dose total: 1022 9:34:53 Fluoroscopy dose: 1022 mGy 9:34:59 Dose Area Product 67726 mGy/cm. 9:35:02 Contrast amount:Isovue 300 108ml. 9:35:07 Maximum allowable dose exceeded? No. 9:35:08 Sharps counted by scrub and verified by R.N. 9:35:10 Insertion/operative site no bleeding no hematoma. 9:35:14 Post-op/insertion site Right Femoral artery dressed using a 4 x 4 and Tegaderm. 9:35:16 Post Procedure Pulses reassessed and unchanged 9:35:19 Post procedure rhythm: unchanged. 9:35:21 Estimated blood loss: 5 ml 9:35:23 Post procedure instruction explained to patient.Patient verbalizes understanding. 9:35:23 Patient needs reinforcement of post procedure teaching. 9:36:31 Procedure type changed to Cath procedure, Diagnostic procedure, LHC, [facility] w/Coronaries, FFR/IVUS, FFR Initial, FFR Additional, Sedation Charges, Moderate Sedation up to 30 minutes, PCI procedure, Coronary Stent, Coronary Stent Initial, Hemochron ACT Test 9:38:45 Procedure and supply charges have been captured, reviewed, submitted and are correct. 9:38:49 Procedure Complication : No complications 9:38:52 Vital chart was stopped 9:38:54 [facility] Findings: MVD- PCI performed (see procedure note) 9:38:55 Operative report dictated upon procedure completion. 9:38:56 See physician's report for complete and final results. 9:38:59 Report given to Pre/Post Procedure Room. 9:39:01 Patient transfered to Pre/Post Procedure Room with Stretcher. 9:39:02 Procedure ended. 9:39:02 Full Disclosure recording stopped 9:39:13 ACC-PCI Only Patient was given prescriptions, or instructed by Shant Ngo MD to start/continue the following medications upon discharge: Plavix 9:39:14 End room use (Document Last) 9:41:00 End room use (Document Last) 9:42:27 End room use (Document Last) Intervention Summary Intervention Notes Time ActionType Lesion and Equipment Used Action# Pressure Duration Attributes 9:29:29 Place stent Mid LAD GAGE RX 3.5 x 1 19 00:10 15 stent ([id number]) Device Usage Item Name Manufacture Quantity Catalog Number Hospital Part Current Minimal Lot# / Charge Number Stock Stock Serial# Code ACIST Syringe Acist 1 60365 210451 762691 021345 20 (37868) Medical Systems Inc Bag Decanter Microtek 1 2001S 470673 99046 811621 5 (2001S) Medical Inc. Medline Cath Medline 1 [id number] 916267 96023 758182 5 Pack ([id number]) ACIST Hand Acist 1 66038 451898 849565 323670 5 Control Medical (24533) Systems Inc ACIST Manifold Acist 1 37394 164897 455054 216115 5 (86868) Medical Systems Inc DIAGNOSTIC Cardinal 1 UA8390 550907 28221 105055 30 Multipack 5Fr Health catheter set (UX8572) Tegaderm 4 x 4 3M 1 1626W 949906 936249 510428 5 (1626W) EMERALD Guide Cardinal 1 502-455 603075 907413 754764 5 Wire (502-455) Health SHEATH 6FR Terumo 1 BGY409 630676 902347 554017 40 [place] (OPU941) MULTIPACK Cardinal 1 119319 5 Pigtail 5 Fr Health catheter MULTIPACK JL Cardinal 1 117049 5 4.0 5Fr Health catheter MULTIPACK 3DRC Cardinal 1 048261 5 5Fr catheter Health INFLATOR Merit Merit 1 OC9102 596690 312934 754221 15 iCrossingutD[employer] Capital (ZW1559) Sullivan Sullivan 1 31517R 984519 586590146 543251 5 Verrata Plus pressure wire (33904Y) SHEATH 7FR Terumo 1 NFK462 088032 788438 329405 5 [place] (WVD290) GUIDE 7FR AR Medtronic 1 [id number] 012065 062300 676784 0 2.0 SH catheter ([id number]) GUIDE 6FR XB Cardinal 1 [id number] 783418 746640 438914 2 4.0 catheter Health (14579874) CHOICE PT [place] 1 [id number] 438997 264732 147190 5 Extra Support Scientific 182cm wire ([id number]) GUIDE 7FR HS Medtronic 1 [id number] 637054 392947 408538 0 II SH catheter ([id number]) SHEATH 7FR Teleflex 1 CL-74154 393872 520560 503784 1 ARROW 45cm (GJ11872) FIELDER XT Asahi Intecc 1 [id number] 513637 10978 641459 5 190cm guidewire ([id number]) GAGE RX 3.5 x Medtronic 1 [id number] 830208 4979544 239763 5 [id number] 15 stent ([id number]) EXOSEAL 7Fr Cardinal 1 EX700 439906 749790 557322 5 (EX700) Health Signature Audit [place] Stage Time Signature Unsigned Intra-Procedure 09/16/2019 Yina Nieto 9:41:00 AM RT(R) Intra-Procedure 09/16/2019 Romana Callahan 9:42:27 AM RN Intra-Procedure 09/16/2019 Shant Ngo 9:43:24 AM Signatures Performing Physician : Signature : Shant Ngo MD Date : Time : Monitor : Yina Gerson RT Signature : Date : Time : Nurse : Romana London RN Signature : Date : Time : [address] [place] [address]
--- NOTE | ~2019-09-16 | OP ---
PATIENT NAME: LAVINIA FRANCISCO MEDICAL RECORD: [id number] :31 LOCATION:D.[facility] ADMISSION DATE: SURGEON: JANA SRAMIENTO MD DATE OF OPERATION: 09/16/2019 PROCEDURES: 1. PTCA stent LAD. 2. IFR LAD. 3. IFR left circumflex. 4. Left heart catheterization. 4. Selective coronary angiography. 5. Left ventriculogram. INDICATION: Angina and coronary artery disease. PROCEDURE IN DETAIL: After informed consent was obtained and after a detailed description of risks, benefits as well as alternative therapies, the patient elected to proceed with angiogram and angioplasty. The right femoral area was prepped and draped in normal sterile fashion. Right femoral artery was cannulated via modified Seldinger technique with placement of 7-German sheath. All catheters exchanged through this sheath. FINDINGS: Left ventriculogram was performed in standard 30-degree CASTILLO view reveals preserved cardiac wall motion, ejection fraction 50% to 55%. SELECTIVE CORONARY ANGIOGRAPHY: 1. The right coronary has a very calcified, very tortuous path with a 95% stenosis at the distal vessel. 2. This is unchanged from previous angiography, prior intervention could not be undertaken of this area. 3. The left circumflex has a questionable stenosis in the mid proximal vessel; however, IFR is normal. 4. The left anterior descending has previously placed stent with 70% in-stent restenosis and IFR is abnormal. PTCA STENT OF THE LAD: The stent used was 3.5 x 15 mm Baldwin. Result was 0% residual stenosis. OVERALL IMPRESSION: Successful percutaneous transluminal coronary angioplasty stent of the left anterior descending going from 70% initial stenosis with an abnormal IFR to 0% residual. TRANSINT:[id number] Voice Confirmation ID: [id number] DOCUMENT ID: [id number] JANA SARMIENTO MD CC: [id number] DICTATION DATE: 09/16/19 0938 MORTGAGE PROCESSING CLERK: 09/16/19 1211 [facility] [address] [place] [address]
[2019-09-16 07:57] VITALS: BP 155/62; Ht 177.8 cm; Wt 75.9 kg
[2019-09-16 08:15] LABS: BASOPHILS 0.5 % (0-2); EOSINOPHILS 8.7 % (0-7); HEMATOCRIT 33.6 % (42.0-54.0); HEMOGLOBIN 11.1 g/dL (13.5-17.5); IMMATURE GRANULOCYTES 0.2 % (0-5); LYMPHOCYTES 16.4 % (15-50); MCH 33.2 pg (26.0-34.0); MCV 100.6 fL (80.0-100.0); MEAN PLATELET VOLUME 8.8 fL (7.4-10.4); MONOCYTES 13.8 % (2-11); NEUTROPHILS 60.4 % (40-80); RBC 3.34 10x6/uL (4.20-6.10); RDW 12.6 % (11.5-14.5); WBC 5.7 10x3/uL (4.8-10.8)
[2019-09-16 08:17] LABS: PLATELET COUNT 205 10x3/uL (130-400)
[2019-09-16 08:28] LABS: ANION GAP 13.8 mmol/L (8-16); CARBON DIOXIDE 27.2 mmol/L (21.0-32.0); CHOL - HDL RATIO 2.9 ratio (2.3-4.9); CREATININE - SERUM 1.7 mg/dL (0.6-1.3); LDL-HDL RATIO 1.6 ratio (1.5-3.5)
--- NOTE | 2019-09-16 09:50 | NUR ---
PT RECEIVED VIA STRETCHER FROM VOIP TECHNICIAN FOR RECOVERY. PT SLEEPY BUT VERBALLY AROUSABLE. PT DENIES PAIN OR DISCOMFORT. IV PATENT INFUSING VIA ORDERS. PT PLACED ON CARDIAC MONITORS, O2 ON VIA NC AT 2L. R GROIN SOFT, DRESSING CDI NO BLEEDING OR S/S HEMATOMA NOTED. HR NSR RATE 61, BP 156/64, RR 15, SAT 99. PT INSTRUCTED TO KEEP LEGS FLAT AND HEAD ON PILLOW, HE VERBALIZED UNDERSTANDING. CALL LIGHT IN REACH
--- NOTE | 2019-09-16 10:17 | NUR ---
PT RESTING W EYES CLOSED, R GROIN SOFT DRESSING CDI NO BLEEDING OR S/S HEMATOMA NOTED. PEDAL PULSES PALPABLE, VSS. CALL LIGHT IN REACH, FAMILY AT BS
--- NOTE | 2019-09-16 10:55 | NUR ---
PT VOIDED 300 CLEAR YELLOW URINE VIA URINAL. R GROIN SOFT, DRESSING REMAINS CDI NO BLEEDING OR S/S HEMATOMA. CALL LIGHT IN REACH, VSS. FAMILY REMAINS AT BS
--- NOTE | 2019-09-16 11:35 | NUR ---
PT RESTING COMFORTABLY. R GROIN SOFT, DRESSING CDI NO S/S HEMATOMA NOTED. LEG PINK AND WARM, PEDAL PULSES PALPABLE. VSS. CALLL LIGHT IN REACH, FAMILY AT BS
--- NOTE | 2019-09-16 12:05 | NUR ---
PT DOING WELL, DENIES PAIN OR DISCOMFORT. R GROIN SOFT, DRESSING CDI NO S/S HEMATOMA NOTED. VSS. CALL LIGHT IN REACH
--- NOTE | 2019-09-16 12:30 | NUR ---
GROIN SOFT, NO S/S HEMATOMA NOTED. HOB ELEVATED SLIGHTLY, SANDWICH TRAY AND DRINK SERVED. VSS. PT DENIES OTHER NEEDS. CALL LIGHT IN REACH
--- NOTE | 2019-09-16 13:05 | NUR ---
PT TOLERATED LUNCH TRAY W/O NAUSEA. R GROIN SOFT, DRESSING REMAINS CDI NO BLEEDING OR S/S HEMATOMA NOTED. VSS. CALL LIGHT IN REACH.
--- NOTE | 2019-09-16 13:28 | NUR ---
DISCHARGE INSTRUCTIONS REVIEWED W PT AND FAMILY MEMBER, BOTH VERBALIZED UNDERSTANDING. IV REMOVED W CATH INTACT, MONITORS REMOVED. GROIN SOFT, NO S/S HEMATOMA. PT UP TO DRESS FOR DISCHARGE
--- NOTE | 2019-09-16 13:43 | NUR ---
1335 PT TO BR VIA WC, VOIDING W/O DIFFICULITY. PT THEN DISCHARGED TO PRIVATE VEHICLE VIA WC WITH ALL BELONGINGS.
== END 2019-09-16 13:40 | disposition home or self-care (01) ==
LOC: D.CATH 07:14
PROVIDERS: ATTEND Internal Medicine Interventional Cardiology
DX: I25.119 Atherosclerotic heart disease of native coronary artery with unspecified angina pectoris (principal); I10 Essential (primary) hypertension; R06.02 Shortness of breath; E78.5 Hyperlipidemia, unspecified; R06.09 Other forms of dyspnea
CPT/HCPCS: 93458; 93571; 93572; C9600